=== PATIENT | female | born 2000 | race Caucasian/White ===

== ENCOUNTER → 2021-07-17 10:34 | Outpatient (CLI) | payer BC, SELFPAY ==
--- NOTE | ~2021-07-17 | US_ITS ---
EXAMINATION: US transvaginal DATE: 07/17/2021 11:05 INDICATION: Missing intrauterine device strings. TECHNIQUE: Multiple transvaginal sonographic images of the pelvis were obtained. COMPARISON: None. FINDINGS: The uterus measures 6.8 x 3.8 x 4.0 cm. There is no free fluid in the pelvis. The endometrial complex measures 4 mm in thickness. There is an intrauterine device in expected position. The right ovary me asures 2.6 x 1.8 x 2.5 cm. The left ovary measures 2.8 x 1.2 x 1.6 cm. There is normal vascular flow in the ovaries. IMPRESSION: 1. Intrauterine device in expected position. Reviewed, dictated and finalized at location A.
== END ==
PROVIDERS: PCP Nurse Practitioner; Visit Provider Nurse Practitioner
DX: T83.32XA Displacement of intrauterine contraceptive device, initial encounter (principal)
CPT/HCPCS: 76830

== ENCOUNTER 2023-08-09 15:59 | Outpatient (CLI) | payer BC, SELFPAY ==
--- NOTE | ~2023-08-09 | US_ITS ---
FIRST TRIMESTER ULTRASOUND 08/09/2023 16:01 CDT Ordering provider: Elizabeth Crowell CNM History: . Viability . Comparison: None. FINDINGS: INTRAUTERINE GESTATIONAL SAC: Present. YOLK SAC: Present. Measures 0.4 cm. POLE: Present. Measures 0.cm. equal to 6 weeks and 3 days heart rate is 116 bpm. GESTATIONAL AGE BY TODAY'S US: 6 weeks and 3 days. REY is March 31, 2024 UTERUS: The uterus measures 8.7x 4.5x 6.2 cm.length which is within normal limits. No myometrial mass es. FREE FLUID: None. OVARIES: Not visualized. ADNEXAL MASSES: None. IMPRESSION: Intrauterine of 6 weeks and 3 days. REY is March 31, 2024. Reviewed, dictated and finalized at location A.
== END 2023-08-09 16:00 ==
LOC: MICIMG 15:59
PROVIDERS: PCP Advanced Practice Midwife; Visit Provider Advanced Practice Midwife
DX: O36.80X0 Pregnancy with inconclusive fetal viability, not applicable or unspecified (principal)
CPT/HCPCS: 76817

== ENCOUNTER 2023-08-18 15:43 | Outpatient (CLI) | payer BC, SELFPAY ==
--- NOTE | ~2023-08-18 | US_ITS ---
EXAMINATION: US OB transvaginal DATE: 08/18/2023 16:06 INDICATION: Uncertain dates. TECHNIQUE: Real-time transvaginal pelvic ultrasound was performed. COMPARISON: ultrasound 08/09/23 FINDINGS: The uterus measures 8.6 x 5.6 x 6.8 cm. There is an intrauterine gestational sac. A yolk sac is ident ified. The crown rump length measures 1.6 cm, which correlates with an estimated gestational a ge of 8 weeks and 0 day(s) (+/-) 5 day(s). heart motion is identified measuring 155 beats per m inute (bpm) by M-mode Doppler. The ovaries are not visualized. There is no free fluid in the pelvis. IMPRESSION: 1. Single living intrauterine gestation with estimated date of delivery of 03/31/2024 based on the ult rasound from 08/09/2023. Reviewed, dictated and finalized at location A. IMPRESSION: 1. Single living intrauterine gestation with estimated date of delivery of 03/31 based on the ultrasound from 08/09/2023.
== END 2023-08-18 15:44 ==
LOC: MICIMG 15:44
PROVIDERS: PCP Obstetrics & Gynecology Gynecology; Visit Provider Obstetrics & Gynecology Gynecology
DX: Z36.87 Encounter for antenatal screening for uncertain dates (principal)
CPT/HCPCS: 76817

== ENCOUNTER 2023-10-27 09:43 | Outpatient (CLI) | payer BC, SELFPAY ==
--- NOTE | ~2023-10-27 | US_ITS ---
EXAMINATION: US OB /maternal detail DATE: 10/27/2023 10:31 INDICATION: anatomic survey. TECHNIQUE: Real-time ultrasound of the pelvis was performed. COMPARISON: Ultrasound 08/18/2023, 08/09/2023 FINDINGS: There is a single living fetus in breech presentation. The placenta is anterior, 4.6 cm from the cer vix. The cervical length is 4.4 cm on transabdominal images, which is normal.. heart rate is 15 0 beats per minute (bpm). The amniotic fluid volume is subjectively normal. The following biometric data were obtained: Biparietal diameter (BPD): 4.0 cm; head circumference (HC): 14.8 cm; abdominal circumference (AC): 12 .9 cm; femur length (FL): 2.1 cm. These measurements are concordant. Estimated weight is 197 g +/- 30 g, which correlates with the 31st percentile when 03/31/24 is us ed as estimated date of delivery. As single measurements, these parameters are each equal to the following estimated gestational ages: BPD: 18 weeks 2 days. HC: 18 weeks 0 days. AC: 18 weeks 3 days. FL: 16 weeks 2 days. estimated gestational age based solely on measurements from this exam is 17 weeks 5 days +/- 1 weeks 2 days. The cerebral ventricles, cerebellum, cisterna magna, nuchal fold, lip, and spine are normal. The diap hragm and stomach are normal. There are two umbilical arteries to yield a 3-vessel cord. The cord ins ertion is normal. IMPRESSION: 1. Single living fetus in breech presentation. 2. Estimated weight is 197 g +/- 30 g, which correlates with the 31st percentile when 03/31/24 i s used as estimated date of delivery. This date was set by ultrasound on 08/09/2023. 3. heart, kidneys, and bladder not well visualized. Otherwise normal anatomic survey. Reviewed, dictated and finalized at location A. IMPRESSION: 1. Single living fetus in breech presentation. 2. Estimated weight is 197 g +/- 30 g, which correlates with the 31st pe rcentile when 03/31/24 is used as estimated date of delivery. This date was set b y ultrasound on 08/09/2023. 3. heart, kidneys, and bladder not well visualized. Otherwise normal feta l anatomic survey.
== END 2023-10-27 09:44 | disposition home or self-care (01) ==
LOC: MICIMG 09:46
PROVIDERS: PCP Obstetrics & Gynecology Gynecology; Visit Provider Obstetrics & Gynecology Gynecology
DX: Z36.9 Encounter for antenatal screening, unspecified (principal)
CPT/HCPCS: 76805

== ENCOUNTER 2023-11-24 15:32 | Outpatient (CLI) | payer BC, SELFPAY ==
--- NOTE | ~2023-11-24 | US_ITS ---
EXAMINATION: US OB follow up DATE: 11/24/2023 15:55 INDICATION: Incomplete anatomic survey. TECHNIQUE: Real-time ultrasound of the pelvis was performed. COMPARISON: Ultrasound 10/27/2023, 08/09/2023 FINDINGS: There is a single living fetus in breech presentation. The placenta is anterior, 4.9 cm from the cer vix. The cervical length is 3.2 cm on transabdominal images, which is normal. heart rate is 145 beats per minute (bpm). The amniotic fluid volume is subjectively normal. The following biometric data were obtained: Biparietal diameter (BPD): 5.3 cm; head circumference (HC): 20.4 cm; abdominal circumference (AC): 17 .1 cm; femur length (FL): 3.7 cm. These measurements are concordant. Estimated weight is 466 g +/- 70 g, which correlates with the 58th percentile when 03/31/24 is us ed as estimated date of delivery. As single measurements, these parameters are each equal to the following estimated gestational ages: BPD: 22 weeks 0 days. HC: 22 weeks 3 days. AC: 22 weeks 0 days. FL: 21 weeks 5 days. estimated gestational age based solely on measurements from this exam is 22 weeks 0 days +/- 1 weeks 4 days. The heart, kidneys, and bladder are normal. IMPRESSION: 1. Single living fetus in breech presentation. 2. Estimated weight is 466 g +/- 70 g, which correlates with the 58th percentile when 03/31/24 i s used as estimated date of delivery. This date was set by ultrasound on 08/09/2023. 3. Normal heart, kidneys, and bladder. Reviewed, dictated and finalized at location A. IMPRESSION: 1. Single living fetus in breech presentation. 2. Estimated weight is 466 g +/- 70 g, which correlates with the 58th pe rcentile when 03/31/24 is used as estimated date of delivery. This date was set b y ultrasound on 08/09/2023. 3. Normal heart, kidneys, and bladder.
== END 2023-11-24 15:33 | disposition home or self-care (01) ==
LOC: MICIMG 15:33
PROVIDERS: PCP Obstetrics & Gynecology Gynecology; Visit Provider Obstetrics & Gynecology Gynecology
DX: Z36.2 Encounter for other antenatal screening follow-up (principal)
CPT/HCPCS: 76816

== ENCOUNTER 2024-01-07 11:06 | Outpatient (RCR) | payer BC, SELFPAY ==
[2024-01-07 12:29] LABS: Hematocrit 33.4 % (37.0-47.0); Hemoglobin 11.5 g/dL (12.0-15.0)
[2024-01-07 12:38] LABS: Glucose 1 Hour PP 50gm Dose 135 mg/dL
[2024-01-07 13:13] LABS: Vitamin D 25 Hydroxy 44.1 ng/mL
[2024-01-07 13:19] LABS: HIV 1/2 Ab P24 Ag Result Negative (Negative)
[2024-01-07 16:54] LABS: Rapid Plasma Reagin Non-Reactive (NonReactive)
[2024-01-10] MEDS: RHO(D) IMMUNE GLOBULIN 300 MCG/2 ML SYRINGE IM (13:50)
== END 2024-04-06 23:59 | disposition home or self-care (01) ==
LOC: ANHLAB 11:06
PROVIDERS: Visit Provider Obstetrics & Gynecology Gynecology
DX: Z11.4 Encounter for screening for human immunodeficiency virus [HIV] (principal); Z11.3 Encounter for screening for infections with a predominantly sexual mode of transmission; Z29.13 Encounter for prophylactic Rho(D) immune globulin; O36.0130 Maternal care for anti-D [Rh] antibodies, third trimester, not applicable or unspecified; Z3A.00 Weeks of gestation of pregnancy not specified
CPT/HCPCS: 36415; 82306; 82947; 85014; 85018; 85461; 86592; 86703; 86850; 86900; 86901; 90384; 96372; G0432; J2790

== ENCOUNTER 2024-02-01 08:58 | Outpatient (CLI) | payer BC, SELFPAY ==
[2024-02-01 09:34] LABS: Glucose Fasting Gestational 111 mg/dL (>/=95)
[2024-02-01 11:06] LABS: Glucose 1 Hour Gest 179 mg/dL (>/=180)
[2024-02-01 12:27] LABS: Glucose 2 Hour Gest 138 mg/dL (>/= 155)
[2024-02-01 13:21] LABS: Glucose 3 Hour Gest 105 mg/dL (>/=140)
== END 2024-02-01 08:59 | disposition home or self-care (01) ==
LOC: ANHLAB 09:03
PROVIDERS: Visit Provider Obstetrics & Gynecology Gynecology
DX: O99.810 Abnormal glucose complicating pregnancy (principal); Z3A.00 Weeks of gestation of pregnancy not specified
CPT/HCPCS: 36415; 82951; 82952

== ENCOUNTER 2024-02-11 12:56 | Outpatient (CLI) | payer BC, SELFPAY ==
--- NOTE | ~2024-02-11 | US_ITS ---
EXAMINATION: US OB follow up DATE: 02/11/2024 13:17 INDICATION: Estimated size greater than expected for estimated gestational age TECHNIQUE: Real-time ultrasound of the pelvis was performed. The interpreting radiologist was not pre sent for the study. COMPARISON: None. FINDINGS: There is a single living fetus in vertex presentation. The placenta is anterior and not low-lying. N ormal cervical length of 3.6 cm. heart rate is 142 beats per minute (bpm). The amniotic fluid i ndex is 23.5 cm, which is normal (5th%-95%: 8.3-24.5 cm at 33 weeks estimated gestational age). The following biometric data were obtained: BPD: 9.1 cm -> 36 weeks 6 days Head circumference: 32.4 cm -> weeks 365 days Abdominal circumference: 33.5 cm -> 37 weeks 3 days Femur length: 6.2 cm -> 32 weeks 1 days The femur length to biparietal diameter, abdominal circumference and head circumference ratios are al l below the normal range. Head circumference to abdominal circumference ratio: 0.97 (normal range 0.93-1.08). Estimated weight: 2821 g (+/-) 423 g or 6 lbs. 4 oz. (+/-) 15 oz. IMPRESSION: 1. Single living fetus in vertex presentation with heart rate of 142 bpm. 2. Amniotic fluid index of 23.5 which is at the upper range of normal. 3. Estimated weight is >97th percentile by Hadlock criteria when 03/31/2024 is used as the estima tiffanie date of delivery (REY). Please correlate with clinical information or earlier ultrasounds for mos t accurate REY. 4. 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 Reviewed, dictated and finalized at location A. ICAL SCIENTIST IMPRESSION: 1. Single living fetus in vertex presentation with heart rate of 142 bpm. 2. Amniotic fluid index of 23.5 which is at the upper range of normal. 3. Estimated weight is >97th percentile by Hadlock criteria when 03/31/2024 is used as the estimated date of delivery (REY). Please correlate with clinica l information or earlier ultrasounds for most accurate REY. 4. Rhizomelia with femur length decreased in length relative to the estimated g estational age and the biparietal diameter, head circumference and abdominal ci rcumference measurements.
== END 2024-02-11 12:57 | disposition home or self-care (01) ==
LOC: MICIMG 12:56
PROVIDERS: PCP Obstetrics & Gynecology Gynecology; Visit Provider Advanced Practice Midwife
DX: O36.63X0 Maternal care for excessive fetal growth, third trimester, not applicable or unspecified (principal); Z3A.00 Weeks of gestation of pregnancy not specified
CPT/HCPCS: 76816

== ENCOUNTER 2024-02-19 21:00 | Outpatient (CLI) | payer BC, SELFPAY ==
[2024-02-19] VITALS (29 sets, daily range): BP systolic 93–126; BP diastolic 63–83; PULSE 51–102; O2SAT 79–100; BMI 43.4
--- NOTE | 2024-02-19 21:59 | PM.IMHP ---
H&P: HPI History of Present Illness Date/Time: 02/19/24 21:59 Chief Complaint: premature rupture membranes Narrative: 23-year-old 1 at 34-,1/7 week admitted with grossly ruptured membranes. Patient states she has had rare contractions and just suddenly had gush of fluid this evening. Patient states good movement and no vaginal bleeding. has been complicated by gestational diabetes that was initially controlled with diet the patient was set up to get insulin teaching and start insulin for elevated fasting sugars on Wednesday him. has been otherwise uncomplicated labs A negative, rubella immune, RPR negative, hepatitis-B surface antigen negative, HIV negative. Review of Systems Review of Systems: All systems reviewed & are unremarkable except as noted in HPI and below ( History of present illness) FORMERLY [facility], [facility] Past Medical History Medical History (Updated 02/19/24 @ 22:10 by Ludy Ugalde MD) Depression with anxiety PCOS (polycystic ovarian syndrome) Meds Home Medications and Allergies Home Medications ?Medication ?Instructions ?Recorded ?Confirmed ?Type nitrofurantoin 100 mg PO Q12H 5 days #10 caps 12/30/23 Rx monohydrate/macrocrystals 100 mg capsule (Macrobid) Allergies Allergy/AdvReac Type Severity Reaction Status Date / Time No Known Allergies Allergy Verified 01/10/24 13:49 Vital Signs Vital Signs - 24 hr 02/19/24 21:31 02/19/24 21:45 Pulse Rate 98 92 Blood Pressure 121/75 105/82 Exam Const: General: healthy appearing and alert Orientation/consciousness: patient oriented x3 Resp: Effort & Inspection: normal respiratory effort GI: Inspection: other (Vertex by u/s) GI Palp: Yes Soft to palpation, No Tenderness to palpation present (GI) and Yes Other GI palpation findings present : External Female Exam: normal external appearance Speculum Exam - Vagina: normal appearance of the vagina and abnormal vaginal discharge (grossly ruptured membranes; clear fluid) Speculum Exam - Cervix: Other cervical findings present (cl/th) Bimanual exam- vagina & uterus: consistency normal Bimanual Exam- Adnexa, other: normal adnexae and No adnexal tenderness Neuro: General: patient oriented x3 Assessment and Plan Assessment and plan (1) 34 weeks gestation of : Code(s): Z3A.34 - 34 weeks gestation of Status: Acute (2) Premature rupture of membranes: Code(s): O42.90 - Premature rupture of membranes, unspecified as to length of time between rupture and onset of labor, unspecified weeks of gestation Status: Acute Assessment and Plan: The patient given betamethasone, ampicillin, and started on magnesium sulfate for transport to [facility]. Physician has accepted the patient and she will go by ambulance.
[2024-02-19] MEDS: MAGNESIUM SULF 4 GM/WATER100ML 4 GM/100 ML BAG IVPB (22:15)
[2024-02-19] MEDS: LACTATED RINGERS 1,000 ML 75 ML (22:15)
[2024-02-19] MEDS: AMPICILLIN 2 GM/NS 100 ML 2 GM/100 ML BAG IVPB (22:15)
[2024-02-19] MEDS: BETAMETHASONE SOD PHOS/ACETATE 30 MG/5 ML VIAL 12 MG IM (22:21)
[2024-02-19] MEDS: MAGNESIUM SULF 20GM/WATER500ML 500 ML 50 MG IV CONT (22:49)
[2024-02-20 00:05] LABS: Glucose 94 mg/dL (65-110)
== END 2024-02-19 23:53 ==
LOC: ANHOBOP 21:07 → ANHOBPP 21:09
PROVIDERS: PCP Obstetrics & Gynecology Gynecology; Visit Provider Obstetrics & Gynecology Gynecology
DX: O42.90 Premature rupture of membranes, unspecified as to length of time between rupture and onset of labor, unspecified weeks of gestation (principal); Z3A.34 34 weeks gestation of pregnancy
CPT/HCPCS: 36415; 82947; 84112; 96372; 99199; J0290; J0702; J3475; J7120

== ENCOUNTER 2024-06-08 19:09 | Emergency (ER) | payer BC, MEDICAID, SELFPAY ==
--- OUTSIDE RECORDS SUMMARY | 2024-06-08 19:11 | XMS_ITS | Clinical Summary ---
Author Organization [facility] Address [address] [place] [address] Care Team Providers Care Latex Fashions Designer Name Role Phone Unavailable Primary Care Provider Unavailabl e Source Comments [facility],non-owned Affiliates and Associated Physician Practices is amultiple site organization consisting of ambulatory clinics and hospital sitesin [place], [place], [place] and [place]. This disclosure is being madepursuant to the Care Everywhere program and may not contain all information available regarding this patient. Last updated 17.[facility] Allergies Active Allergy Reactions Criticality Noted Date Comments Latex Other 02/21/2024 Reports discomfort with latex condoms Medications * Be aware that medications may not be up to date on this document. Alwaysverify current medications with the patient. Vit-Fe Fumarate-FA ( vitamin) 28-0.8 MG tablet Take 1 (one) tablet by mouth once daily Active venlafaxine (Effexor) 75 MG tablet Take 1 (one) tablet by mouth 3 times daily with meals Active docusate sodium (Colace) 100 MG capsule Take 1 (one) capsule by mouth once daily as needed for constipation 30 capsule 3 5 Active ibuprofen (Motrin) 600 MG tablet Take 1 (one) tablet by mouth every 6 hours as needed for Pain 30 tablet 1 5 Active ferrous sulfate 325 (65 FE) MG tablet Take 1 (one) tablet by mouth once daily 30 tablet 1 5 Active polyethylene glycol 3350 (Miralax) 17 GM/SCOOP powder Take 17 (seventeen) g by mouth once daily as needed for constipation 500 g 1 5 Active plus iron (Natatab) 29-1 MG tablet Take 1 (one) tablet by mouth once daily 90 tablet 4 5 Active acetaminophen (Tylenol) 500 MG tablet Take 1 (one) tablet by mouth every 4 hours as needed for Fever or Pain Maximum allowable Acetaminophen amount = 4 Grams (4000 mg) / 24 hours. 60 tablet 5 Active naloxone HCl (Narcan) 4 MG/0.1ML nasal spray Mcfaddin 1 (one) spray into the nose as needed (May repeat every 2 min in alternating nostrils until emergency medical help arrives for overdose) 2 Each 5 Active oxyCODONE, immediate release, (Roxicodone) 5 MG tabletIndicati ons:Status post section Take 1 (one) tablet by mouth every 6 hours as needed for Pain 12 tablet 5 Active Additional Information Patient not taking.Reason: Patient adjusted (completed), Reported on 03/08/2024 Active Problems Problem Noted Date Diagnosed Date Supervision of high risk in third trim kwesi 02/20/2024 Encounters Date Type Department Care Team Description 03/22/2024 Telephone [facility] [address] [address]. [address] [place] [address] Mirna Wan, SRINATH Letter for School or Work 03/17/2024 Telephone [facility] [address] [address]. [address] [place] [address] Kristie Chilel Forms/questionnaires (Patient needs documentation completed about her recent delivery and hospital stay with [facility]. Provided patient with fax # [phone].) from Last 3 Months Immunizations Immunization Administration Dates Next Due MMR 02/23/2024(Deferred: - [id number] immune) Rho D Immune Globulin 02/23/2024 TDAP (7yrs+) 02/23/2024(Deferred: Patient Condition - RECIEVED AT 28 WEEKS) Social History Tobacco Use Types Packs/Day Years Used Date Smoking Tobacco: Never Smokeless Tobacco: Never Alcohol Use Standard Drinks/Week Comments Not Currently 0 (1 standard drink = 0.6 oz pur e alcohol) Overall Financial Resource Strain (CARDIA) Juanitae r Date Recorded How hard is it for you to pa y for the very basics like food, housing, medical care, and heating? Not hard at all 02/29/2024 [facility] [place] [facility] - Occupational Stress Questionnaire Answer Date Recorded Do you feel stress - tense, restless, nervous, or anxious, or unable to sleep at night because your mind is troubled all the time - these days? Only a little 02/29/2024 Hunger Vital Sign Answer Date Recorded Within the past 12 months, y ou worried that your food would run out before you got the money to buy more. Never true 02/28/19 25 Within the past 12 months, t he food you bought just didn't last and you didn't have money to get more. Never true 02/29/2024 PRAPARE - Transportation Answer Date Re corded In the past 12 months, has l ack of transportation kept you from medical appointments or from getting medications? No 08/2024 In the past 12 months, has l ack of transportation kept you from meetings, work, or from getting things needed for daily living? No 02/29/2024 [place] Depression Scale Answer Date Recorded [place] Depression Scale Total 0 03/08/2024 The thought of harming myself has occurred to me . Never 03/08/2024 Housing Stability Vital Sign Answer João e Recorded In the last 12 months, was t here a time when you were not able to pay the mortgage or rent on time? No 02/29/2024 In the past 12 months, how m any times have you moved where you were living? 1 02/29/2024 At any time in the past 12 m ont, were you homeless or living in a detention (including now)? 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 Legal Sex Female 10:39 PM LIQUOR BRIDGE OPERATOR HELPER Gender Identity Not on file Sexual Orientation Not on file Last Filed Vital Signs Vital Sign Reading Time Taken Comments Blood Pressure 117/57 03/08/2024 1:35 PM LIQUOR BRIDGE OPERATOR HELPER Pulse 81 03/08/2024 1:35 PM LIQUOR BRIDGE OPERATOR HELPER Temperature 36.7 C (98.1 F) 03/08/2024 1:35 PM LIQUOR BRIDGE OPERATOR HELPER Respiratory Rate 18 03/02/2024 8:30 AM LIQUOR BRIDGE OPERATOR HELPER Oxygen Saturation 96% 03/02/2024 2:58 AM LIQUOR BRIDGE OPERATOR HELPER Inhaled Oxygen Concentration - - Weight 115.7 kg (255 lb) 03/08/2024 1:35 PM LIQUOR BRIDGE OPERATOR HELPER Height 170.2 cm (5' 7 ) 02/29/2024 8:21 PM LIQUOR BRIDGE OPERATOR HELPER Body Mass Index 39.94 02/29/2024 8:21 PM LIQUOR BRIDGE OPERATOR HELPER Plan of Treatment Health Maintenance Due Date Last Done Comments PAP SMEAR 2000 HIV SCREENING 02/24/2015 HPV VACCINE (1 - 3-dose series) 02/24/2015 CHLAMYDIA/GONORRHEA SCREENING 2016 HEPATITIS C SCREENING 02/20/2018 DTAP/TDAP/TD VACCINES (1 - Tdap) 02/24/2019 HEPATITIS B VACCINE (1 of 3 - 19+ 3-dose series) 02/24/2019 COVID-19 VACCINE (1 - season) 2023 INFLUENZA VACCINE (Season Ended) 2024 12/20/2018, 12/07/2017, 12/21/2016, Additional history exists ZOSTER VACCINE (1 of 2) 02/24/2050 DEPRESSION SCREENING Completed 03/08/2024 HIB VACCINE Aged Out No longer eligi ble based on patient's age to complete this topic MENINGOCOCCAL (Group B) VACCINE SHARED DECISION-MAKING Aged Out No longer eligible based on patient's age to complete this topic MENINGOCOCCAL GROUPS A/C/Y/W VACCINE Aged Out No longer eligible based on patient's age to complete this topic PNEUMOCOCCAL VACCINE Aged Out No long er eligible based on patient's age to complete this topic Insurance [employer] [place] - [place] Advance Directives * Full Code (Latest Code Status on File) Date Activated Date Inactivated Comments 02/21/2024 10:45 PM 2024 2:17 PM * Full Code Date Activated Date Inactivated Comments 02/20/2024 1:55 AM 02/21/2024 10:45 PM
--- OUTSIDE RECORDS SUMMARY | 2024-06-08 19:11 | XMS_ITS | Referral Summary ---
Author Organization [address] Address [address] [place] [id number] Care Team Providers Care Hydroelectric Station Operator Chief Name Role Phone Unavailable Primary Care Provider Unavailabl e Allergies No known active allergies Medications SRONYX 0.1-20 mg-mcg per tablet TAKE 1 TABLET EVERY DAY. TAKE ACTIVE TABLETS CONTINOUSLY FOR 3 MONTHS THEN TAKE PLACEBO OF 3RD PACK. 2 8 Active ergocalciferol (VITAMIN D) 50,000 unit capsule 1 Active venlafaxine XR (EFFEXOR-XR) 75 mg 24 hr capsule Take by mouth daily 4 Active Active Problems Problem Noted Date Diagnosed Date Obesity (BMI 30-39.9) 04/30/2020 Resolved Problems Problem Noted Date Diagnosed Date Resolved Date Acute streptococcal pharyngitis 07/03/2016 10/01/2020 Overview (07/17/2016): Strep throat Immunizations Immunization Administration Dates Next Due DTaP 06/12/2005, 2,2000,07/05,2000 HPV9 08/07/2016,10/05/2014 Hep A, Pediatric 10/05/2014,09/04/2011 Hep B / HiB 2001,2000,2000 IPV 06/12/2005, 1,2000,04/24 Influenza LAIV (Nasal) 01/22/2011 Influenza, Quadrivalent, Spl it, Preservative Free, Intramuscular 12/20/2018,12/07/2017,12/21/2016 MMR 06/12/2005,2001 Meningococcal Conjugate (Menveo) 08/07/2016,08/22 Pneumococcal Conjugate 7-Valent 05/28/2001 Pneumococcal, Unspecified 05/28/2001,08/2000,2000,04/24 Tdap 09/04/2011 Varicella 09/04/2011,2001 Social History Tobacco Use Types Packs/Day Years Used Date Smoking Tobacco: Never Smokeless Tobacco: Never Tobacco Cessation:Counseling Given: No Comments Unknown Sex and Gender Information Value Date Recorded Sex Assigned at Not on file Legal Sex 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
--- OUTSIDE RECORDS SUMMARY | 2024-06-08 19:11 | XMS_ITS | Clinical Summary ---
Author Organization [address] Address [address] [place] [id number] Care Team Providers Care Baccarat Dealer Name Role Phone Unavailable Primary Care Provider [...] Pneumococcal, Unspecified 05/28/2001,08/2000,2000,04/24 Tdap 09/04/2011 Varicella 09/04/2011,2001 Medical History Medical History Date Comments Acute streptococcal pharyngitis 07/03/2016 Strep throat Family History Medical History Relation Name Comments Hypertension Other Family history of Hypertension; Relation Name Status Comments Other Social History Tobacco Use Types Packs/Day Years Used Date Smoking Tobacco: Never Smokeless Tobacco: Never Tobacco Cessation:Counseling Given: No Comments Unknown Sex and Gender Information Value Date Recorded Sex Assigned at Not on file Legal Sex 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 Gender Identity Not on file Sexual Orientation Not on file Obstetrics History Last Filed Vital Signs Vital Sign Reading [...] 11/11/2023 2:54 PM CDT Plan of Treatment Health Maintenance Due Date Last Done Comments Cervical Cancer Screening 2000 Depression Screening 2000 Hepatitis C Screening 2000 Regular Well Visit/Exam 18-64 02/24/2018 DTaP/Tdap/Td Vaccine (7 - Td or Tdap) 09/03/2021 09/04/2011, 06/12/2005, 05/28/2001, Additional history exists Influenza Vaccine (#1) 2023 9, 12/07/2017, 12/21/2016, Additional history exists Hepatitis B Screening Completed 2001 , 2000, 2000 Pneumococcal vaccine <65 Completed 002, 05/28/2001, 2000, Additional history exists Varicella Vaccines Completed 09/04/2011, 2001 HPV Vaccines Completed 08/07/2016, 10/05/2014 Insurance [employer] CHO[employer] ACCESS CHOICE
--- OUTSIDE RECORDS SUMMARY | 2024-06-08 19:11 | XMS_ITS | Clinical Summary ---
Author Organization [facility] Address [address] [place] [address] Phone Care Team Providers Care Java Systems Analyst Name Role Phone Renetta Neves MD Primary Care Provider Allergies No known active allergies Medications pantoprazole (PROTONIX) 40 MG Tablet Delayed Response Take 1 Tablet by mouth 2 times daily (with meals) for 14 days. 30 Tablet 05/01/2024 5 sucralfate (CARAFATE) 1 GM Tablet Take 1 Tablet by mouth 3 times daily for 14 days. 42 Tablet 05/01/2024 5 Active Problems No known active problems Encounters Date Type Department Care Team Description 05/01/2024 1:17 PM CDT - 05/01/2024 2:48 PM CDT Emergency [facility] Emergency [address] [place] [address] Vinnie Rojas MD GERD (gastroesophageal reflux disease) Discharge Disposition: Discharged to home or Selfcare 05/01/2024 Travel from Last 3 Months Social History Tobacco Use Types Packs/Day Years Used Date Smoking Tobacco: Never Smokeless Tobacco: Never Alcohol Use Standard Drinks/Week Comments Yes 0 (1 standard drink = 0.6 oz pur e alcohol) AUDIT-C Answer Date Recorded Frequency of Alcohol Consumption Never 04/29/2018 Average Number of Drinks Not on file 019 Frequency of Binge Drinking Not on file 09/2018 Comments No Sex and Gender Information Value Date Recorded Sex Assigned at Not on file Legal Sex Female 7:07 PM CDT Gender Identity Not on file Sexual Orientation Not on file Last Filed Vital Signs Vital Sign Reading Time Taken Comments Blood Pressure 116/93 05/01/2024 2:45 PM CDT Pulse 87 05/01/2024 2:45 PM CDT Temperature 36.4 C (97.5 F) 05/01/2024 12:46 PM CDT Respiratory Rate 16 05/01/2024 2:45 PM CDT Oxygen Saturation 100% 05/01/2024 2:45 PM CDT Inhaled Oxygen Concentration - - Weight 120.2 kg (265 lb) 05/01/2024 12:46 PM CDT Height 170.2 cm (5' 7 ) 05/01/2024 12:46 PM CDT Body Mass Index 41.5 05/01/2024 12:46 PM CDT Plan of Treatment Health Maintenance Due Date Last Done Comments Hepatitis C Virus (HCV) Screening 2000 Pap Smear 02/24/2021 Influenza Immunization (#1) 10/24/202311/23, 12/07/2017, 12/21/2016, Additional history exists SARS-COV-2 Immunization (2023- season) 2023 Respiratory Syncytial Virus (RSV) Immunization (Adult) (1 - 1-dose 75+ series) 02/24/2075 Hepatitis B Immunization Completed 002, 2000, 2000 Pneumococcal Immunization Combined Aged Out 05/28/2001, 05/28/2001, 2000, Additional history exists No longer eligible based on patient's age to complete this topic Measles Mumps Rubella (MMR) Immunization Discontinued 06/12/2005, 2001 Polio (IPV) Immunization Discontinued 006, 2000, 2000, Additional history exists DTaP/Tdap/Td Immunization Discontinued 2011, 06/12/2005, 05/28/2001, Additional history exists TdaP Immunization Completed 09/04/2011 Varicella Immunization Discontinued 09/04/2011, 2001 Hepatitis A Immunization Discontinued 10/05/2014, 08/22 Human Papillomavirus (HPV) Immunization Completed 08/07/2016, 10/05/2014 Meningococcal Immunization (ACWY) Completed 08/07/2016, 09/04/2011 Rotavirus Immunization Aged Out No lo nger eligible based on patient's age to complete this topic Procedures Procedure Name Priority Date/Time Associated Diagnosis Comments POCT URINE HCG () STAT 05/01/2024 1:30 PM CDT URINALYSIS REFLEX IF INDICATED BY ABNORMAL RESULTS STAT 05/01/2024 1:29 PM CDT GOLD TOP TUBE STAT 05/01/2024 12:50 PM CDT BLUE TOP TUBE STAT 05/01/2024 12:50 PM CDT CBC WITH AUTO DIFFERENTIAL STAT 05/01/2024 12:50 PM CDT EXTRA TUBES STAT 05/01/2024 12:50 PM CDT LIPASE STAT 05/01/2024 12:50 PM CDT CMP (COMPREHENSIVE METABOLIC PANEL) STAT 05/01/2024 12:50 PM CDT COMPLETE BLOOD COUNT (CBC) WITH DIFF STAT 05/01/2024 12:50 PM CDT from Last 3 Months Results * POCT Urine HCG () (05/01/2024 1:30 PM CDT) Pathologist [facility] POC URINE Negative POC URINE CONTROL Painter Airbrush Pass Urine 05/01/2024 1:30 PM CDT us Vinnie Rojas MD POINT OF CARE TESTING (MANUAL) F inal Result * (ABNORMAL) Urinalysis w/ Reflex (05/01/2024 1:29 PM CDT) Pathologist [facility] SPECIFIC GRAVITY 1.015 1.003 - 1.030 05/01/2024 2:03 PM CDT [facility] URINE PH 6.0 5.0 - 9.0 05/01/2024 2:03 PM CDT [facility] WBC ESTERASE Negative Negative 05/01/2024 2:03 PM CDT [facility] NITRITE Negative Negative 05/01/2024 2:03 PM CDT [facility] PROTEIN, RANDOM URINE 30 mg/dL(A) Negative 05/01/2024 2:03 PM CDT [facility] URINE GLUCOSE, QUAL Negative Negative 05/01/2024 2:03 PM CDT [facility] URINE KETONES Negative Negative 05/01/2024 2:03 PM CDT [facility] UROBILINOGEN Normal Normal mg/dL 05/01/2024 2:03 PM CDT [facility] URINE BLOOD Negative Negative coleen/ul 05/01/2024 2:03 PM CDT [facility] URINALYSIS COLOR Yellow 05/02/19 2:03 PM CDT [facility] URINALYSIS CLARITY Clear 05/01/2024 2:03 PM CDT [facility] WBC (Urine) 0-5 Negative, 0-5 /hpf 05/01/2024 2:03 PM CDT [facility] URINE RBC'S 0-2 Negative, 0-2 /hpf 05/01/2024 2:03 PM CDT [facility] EPITHELIAL CELLS Occasional /lpf 05/02/19 2:03 PM CDT [facility] BACTERIA, URINE Negative Negative /hpf 05/01/2024 2:03 PM CDT [facility] Urine URINE SPECIMEN / Unknown Non-Phlebotomy Collection / Unknown 05/01/2024 1:29 PM CDT 05/01/2024 1:39 PM CDT us Vinnie Rojas MD URINE ORDERABLES Final Result [facility] [address] [place] [address] * Gold Top Tube (05/01/2024 12:50 PM CDT) Blood No Phlebotomy Charged / Unknown 05/01/2024 12:50 PM CDT 05/01/2024 2:45 PM CDT us Vinnie Rojas MD CHEMISTRY ORDERABLES Final Resul t Performing Organization Address City/[facility]/ZIP Co de Phone Number [facility] [address] [place] [address] * Blue Top Tube (05/01/2024 12:50 PM CDT) Blood No Phlebotomy Charged / Unknown 05/01/2024 12:50 PM CDT 05/01/2024 2:45 PM CDT us Vinnie Rojas MD HEMATOLOGY ORDERABLES Final Resu lt Performing Organization Address [facility] Co de Phone Number [facility] [address] [place] [address] * (ABNORMAL) CBC with Auto Differential (05/01/2024 12:50 PM CDT) WBC 11.30 4.00 - 12.00 10(3)/mcL 05/01/2024 1:15 PM CDT [facility] RBC 4.52 3.80 - 5.30 10(6)/mcL 05/01/2024 1:15 PM CDT [facility] HEMOGLOBIN (HGB) 13.2 12.0 - 15.8 g/dL 05/01/2024 1:15 PM CDT [facility] HEMATOCRIT (HCT) 39.8 36.0 - 47.0 % 05/01/2024 1:15 PM CDT [facility] MCV 88.1 82.0 - 96.0 fL 05/01/2024 1:15 PM CDT [facility] MCH 29.2 26.0 - 34.0 pg 05/01/2024 1:15 PM CDT [facility] MCHC 33.2 31.0 - 36.0 g/dL 05/01/2024 1:15 PM CDT [facility] PLATELET COUNT 307 140 - 440 10(3)/mcL 05/01/2024 1:15 PM CDT [facility] RDW 12.7 11.8 - 15.5 % 05/01/2024 1:15 PM CDT [facility] MPV 9.5(L) 9.7 - 12.4 fL 05/01/2024 1:15 PM CDT [facility] NEUTROPHILS 59.0 47.0 - 73.0 % 05/01/2024 1:15 PM CDT [facility] LYMPHOCYTES 24.6 18.0 - 42.0 % 05/01/2024 1:15 PM CDT [facility] MONOCYTES 7.1 4.0 - 12.0 % 05/01/2024 1:15 PM CDT [facility] EOSINOPHILS 8.8(H) 0.0 - 5.0 % 05/01/2024 1:15 PM CDT [facility] BASOPHILS 0.5 0.0 - 1.0 % 05/01/2024 1:15 PM CDT [facility] ABSOLUTE NEUTROPHILS 6.66 1.60 - 7.70 10(3)/mcL 05/01/2024 1:15 PM CDT [facility] ABSOLUTE LYMPHOCYTES 2.78 1.30 - 3.20 10(3)/[facility] 05/01/2024 1:15 PM CDT [facility] ABSOLUTE MONOCYTES 0.80 0.20 - 1.00 10(3)/[facility] 05/01/2024 1:15 PM CDT [facility] ABSOLUTE EOSINOPHIL 1.00(H) 0.00 - 0.40 10(3)/[facility] 05/01/2024 1:15 PM CDT [facility] ABSOLUTE BASOPHILS 0.06 0.00 - 0.10 10(3)/[facility] 05/01/2024 1:15 PM [facility] NRBC PER 100 WBC 0 05/02/19 1:15 PM [facility] Blood Venipuncture / Unknown 05/01/2024 12:50 PM CDT 05/01/2024 1:12 PM CDT us Vinnie Rojas MD HEMATOLOGY ORDERABLES Final Resu lt [facility] [address] [place] [address] * Lipase (05/01/2024 12:50 PM CDT) LIPASE 22 8 - 78 U/L 05/01/2024 1:32 PM CDT [facility] Blood Venipuncture / Unknown 05/01/2024 12:50 PM CDT 05/01/2024 1:12 PM CDT us Vinnie Rojas MD CHEMISTRY ORDERABLES Final Resul t Performing Organization Address City/[facility]/ZIP Co de Phone Number [facility] [address] [place] [address] * (ABNORMAL) CMP (05/01/2024 12:50 PM CDT) SODIUM 142 136 - 145 mmol/L 05/01/2024 1:32 PM CDT [facility] POTASSIUM 4.1 3.5 - 5.1 mmol/L 05/01/2024 1:32 PM CDT [facility] CHLORIDE 108(H) 98 - 107 mmol/L 05/01/2024 1:32 PM CDT [facility] CO2, VENOUS 26 22 - 30 mmol/L 05/01/2024 1:32 PM CDT [facility] ANION GAP 12.1 <18.0 mmol/L 05/01/2024 1:32 PM CDT [facility] GLUCOSE 83 70 - 99 mg/dL 05/01/2024 1:32 PM CDT [facility] BUN 10 5 - 18 mg/dL 05/01/2024 1:32 PM CDT [facility] CREATININE, BLOOD 0.70 0.60 - 1.00 mg/dL 05/01/2024 1:32 PM [facility] BUN/CREATININE RATIO 14 12 - 20 ratio 05/01/2024 1:32 PM T [facility] TOTAL PROTEIN 7.5 6.0 - 8.0 g/dL 05/01/2024 1:32 PM T [facility] ALBUMIN 4.1 3.5 - 5.0 g/dL 05/01/2024 1:32 PM T [facility] A/G RATIO 1.2 1.0 - 2.2 05/01/2024 1:32 PM T [facility] CALCIUM 9.4 8.7 - 10.5 mg/dL 05/01/2024 1:32 PM [facility] T BILI 0.2 0.2 - 1.2 mg/dL 05/01/2024 1:32 PM [facility] SGOT (AST) 37 <43 U/L 05/01/2024 1:32 PM [facility] SGPT (ALT) 57(H) <56 U/L 05/01/2024 1:32 PM [facility] ALKALINE PHOSPHATASE 80 40 - 150 U/L 05/01/2024 1:32 PM [facility] GFR, ESTIMATED >60 >=60 05/01/2024 1:32 PM T [facility] Comment: Creatinine Clearance is the preferred criteria for selecting drug dose adjustments in renally impaired patients. The GFR is provided as additional pertinent clinical information. GFR is reported in mL/min/1.73 sq m. Calculation based on the Chronic Kidney Disease Epidemiology Collaboration (CKD- EPI) equation refit without adjustment for race. GFR, EST. >60 >=60 025 1:32 PM T [facility] GFR, EST. NONAFRICAN >60 >=60 05/01/2024 1:32 PM [facility] Blood Venipuncture / Unknown 05/01/2024 12:50 PM CDT 05/01/2024 1:12 PM CDT us Vinnie Rojas MD CHEMISTRY ORDERABLES Final Resul t [facility] [address] [place] [address] from Last 3 Months Insurance [facility] Care Teams Java Systems Analyst Relationship Specialty Start Date End Date Renetta Neves MD [address] [facility] [address] [place] [id number] PCP - General Pediatrics 04/29/18
--- NOTE | 2024-06-08 19:14 | ED.URI ---
HPI - URI/Sore Throat General Chief Complaint: Upper Respiratory Infection Stated Complaint: Upper Respiratory Infection Time Seen by Provider: 06/08/24 19:14 Source: patient and RN notes reviewed Mode of arrival: ambulatory Limitations: no limitations History of Present Illness HPI Narrative: 24 y/o female presented for c/o cough, sore throat, nasal congestion, body aches. Onset 4 days. Not taking anything because she is currently breast feeding. Denies n/v/d/f/c. MD elicited complaint: cough Related Data Allergies Allergy/AdvReac Type Severity Reaction Status Date / Time No Known Allergies Allergy Verified 06/08/24 19:22 Review of Systems Review of Systems: per HPI [facility] Past Medical History Medical History (Updated 06/08/24 @ 19:33 by Zoila Moore, [employer] SERVIC[employer] INSTALLER) Depression with anxiety PCOS (polycystic ovarian syndrome) Exam Narrative: GENERAL: well-appearing, nontoxic no acute distress. EYES: conjunctivae clear ENT: Mucous membranes moist. TM pearly banda with dull light reflex bilaterally; no tragal tenderness. Oropharynx erythematous without lesions or exudate, no drooling, no hoarseness, no trismus, uvula midline. No tripod positioning, muffled voice, soft palate or pharyngeal wall bulging NECK: Supple. No lymphadenopathy CHEST: Clear to auscultation, breath sounds equal. No wheezing, rhonchi, rales, or stridor. No respiratory distress, speaks in full sentences. HEART: Regular rate and rhythm. SKIN: Warm, dry, no rash. NEURO: Alert and oriented x3. PSYCH: Normal mood and affect Course Course Emergency Course: Patient is aware of diagnosis, understands and agrees to treatment plan. Anticipatory guidance given. Patient agrees to follow-up as directed and is aware of reasons to seek care at the emergency department. Portions of this record may have been created with voice recognition software Level of Care: Express Care Visit Vital Signs Vital signs: Vital Signs Temperature 96.4 F L 06/08/24 19:18 Pulse Rate 90 06/08/24 19:18 Respiratory Rate 20 06/08/24 19:18 Blood Pressure 105/80 06/08/24 19:18 Pulse Oximetry 98 06/08/24 19:18 Oxygen Delivery Room Air 06/08/24 19:18 Temperature 96.4 F L 04/17/25 19:18 Pulse Rate 90 06/08/24 19:18 Respiratory Rate 20 06/08/24 19:18 Blood Pressure 105/80 06/08/24 19:18 Pulse Oximetry 98 06/08/24 19:18 Oxygen Delivery Room Air 06/08/24 19:18 reviewed MDM - URI/Sore Throat MDM Narrative Medical decision making narrative: Discussed physical exam findings And negative flu and COVID results. Advised supportive measures and signs/symptoms to go to the ER. Pt is appropriate for outpt treatment and f/u. Differential Diagnosis Differential diagnosis: Likely upper respiratory infection, sinusitis and viral infection Discharge Plan Discharge Clinical Impression: Bronchitis Patient Disposition: Home Condition: Stable Instructions: Antibiotic Form, Acute Bronchitis (ED) Additional Instructions: Acute bronchitis can be contagious because it is usually caused by infection with a virus or bacteria. It is usually for a few days but you can be contagious for up to one week. Avoid crowds until you do not have a fever and symptoms are improved Take medication as directed Recommend Flonase spray and Zyrtec (or Claritin/Mitzi) over the counter Cough syrup may cause drowsiness; avoid driving or take it at night time. Tylenol every 8 hours as needed for pain Symptomatic treatment includes: rest, fluids, and increase humidity of the air at home. Follow up with your primary care provider as needed in 1 week Go to the ER for worsening symptoms or concerns Patient Language: Tamazight Prescriptions: New benzonatate 200 mg capsule 200 mg PO TID PRN (Reason: cough) Qty: 20 0RF prednisone 20 mg tablet 40 mg PO DAILY 4 Days Qty: 8 0RF albuterol sulfate 90 mcg/actuation HFA aerosol inhaler 2 inh inhalation QID PRN (Reason: shortness of breath or wheezing) Qty: 8.5 0RF No Action nitrofurantoin monohyd/m-cryst [Macrobid] 100 mg Capsule 100 mg PO Q12H 5 Days Qty: 10 0RF Rx Instructions: must administer with a meal/food Follow-up/Referrals: Ludy Ugalde MD [Primary Care Provider] - Time of Disposition: 19:58
[2024-06-08 19:18] VITALS: BP 105/80; PULSE 90; RESP 20; TEMP 35.8; O2SAT 98
[2024-06-08 20:06] LABS: EDCOVIDSCREEN Negative (Negative)
[2024-06-08 20:07] LABS: EDINFLUASCREEN Negative (Negative); EDINFLUBSCREEN Negative (Negative)
== END 2024-06-08 20:03 | disposition home or self-care (01) ==
PROVIDERS: Emergency Provider Nurse Practitioner Family; PCP Obstetrics & Gynecology Gynecology
DX: J40 Bronchitis, not specified as acute or chronic (principal); Z20.822 Contact with and (suspected) exposure to COVID-19
CPT/HCPCS: 87426; 87804; 99213; G0463